=== PATIENT | female | born 1980 | race Caucasian/White ===

== ENCOUNTER 2022-02-15 16:42 | Emergency (ER) | payer OTHER, SELFPAY ==
[2022-02-15 16:55] VITALS: BP 127/88; PULSE 79; RESP 18; TEMP 36.6; O2SAT 100
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
== END 2022-02-15 17:26 | disposition home or self-care (01) ==
PROVIDERS: Emergency Provider Nurse Practitioner Family
DX: B37.3 Candidiasis of vulva and vagina (principal); F41.9 Anxiety disorder, unspecified
CPT/HCPCS: 81003; 87086; 87088; 87491; 87591; 87661; 99204; G0463

== ENCOUNTER 2025-01-10 08:28 | Outpatient (CLI) | payer OTHER, SELFPAY ==
--- OUTSIDE RECORDS SUMMARY | 2025-01-10 08:31 | XMS_ITS | Encounter Summary ---
Author Organization [facility] Care Team Providers Care Cutter Head Sharpener Name Role Phone Brenda Fuller MD Primary Care Provider [phone] Arnoldo Valiente DO Primary Care Provider + Samreen Martinez [facility] Primary Care Provi dax Encounter Details Date Type Department Care Team (Latest Contact Info) Description 05/11/2017 Orders Only [facility] ProviderGerardo MD [address] [place] [id number] Social History Tobacco Use Types Packs/Day Years Used Date Smoking Tobacco: Never Assessed Comments Unknown Sex and Gender Information Value Date Recorded Sex Assigned at Not on file Legal Sex Female 8:20 PM SYSTEM CONFIGURATION SPECIALIST Gender Identity Not on file Sexual Orientation Not on file documented as of this encounter Plan of Treatment Not on file documented as of this encounter Procedures Procedure Name Priority Date/Time Associated Diagnosis Comments CARDIOLOGY REPORT 05/15/2017 12: 00 AM SYSTEM CONFIGURATION SPECIALIST documented in this encounter Results * CARDIOLOGY REPORT (05/15/2017 12:00 AM SYSTEM CONFIGURATION SPECIALIST) Anatomical Region Laterality Modality Other Narrative 05/15/2017 12:00 AM SYSTEM CONFIGURATION SPECIALIST Ordered by an unspecified provider. Historical Provider [facility] AMELIA GANDARA Final Result documented in this encounter Visit Diagnoses Not on filedocumented in this encounter Care Teams Cutter Head Sharpener Relationship Specialty Start Date End Date Brenda Fuller MD PCP - General Family Medicine 12/19/18 12/18/21 Arnoldo Valiente DO PCP - General Family Medicine 12/19/21 10/08/23 Samreen Martinez DNP [id number] [place] [address] PCP - General Nurse Practitioner 10/09/23 documented as of this encounter
--- OUTSIDE RECORDS SUMMARY | 2025-01-10 08:31 | XMS_ITS | Clinical Summary ---
Author Organization [facility] Care Team Providers Care Arabic Professor Name Role Phone Unavailable Primary Care Provider Unavailabl e Social History Tobacco Use Types Packs/Day Years Used Date Smoking Tobacco: Never Assessed Comments Unknown Sex and Gender Information Value Date Recorded Sex Assigned at Not on file Legal Sex Female 7:52 AM BREWER HELPER Gender Identity Not on file Sexual Orientation Not on file Plan of Treatment Health Maintenance Due Date Last Done Comments Hepatitis C Virus (HCV) Screening 1981 Human Papillomavirus (HPV) Immunization (1 - 3-dose series) 1996 Hepatitis B Immunization (1 of 3 - 19+ 3-dose series) 2000 Pap Smear 2002 Cervical Cancer Screening (CCS) 2011 HPV/Cotest 2011 SARS-COV-2 Immunization ( season) 2024 10/18/2020 Influenza Immunization (#1) 2025 Respiratory Syncytial Virus (RSV) Immunization (Adult) (1 - 1-dose 75+ series) 2056 DTaP/Tdap/Td Immunization Discontinued 02/19/2014 TdaP Immunization Completed 02/19/2014 Meningococcal Immunization (ACWY) Aged Out No longer eligible based on patient's age to complete this topic Pneumococcal Immunization Combined Aged Out No longer eligible based on patient's age to complete this topic Rotavirus Immunization Aged Out No lo nger eligible based on patient's age to complete this topic
--- OUTSIDE RECORDS SUMMARY | 2025-01-10 08:31 | XMS_ITS | Clinical Summary ---
Author Organization [facility] Address [address] [place] [address] Care Team Providers Care Breaking Machine Operator Name Role Phone Brenda Colon MD Primary Care Provider [phone] Allergies No known active allergies Medications multi vitamin/minerals tablet Take 1 tablet by mouth daily. Active Family History Medical History Relation Comments No Known Problems Father No Known Problems Mother Relation Status Comments Father Mother Social History Tobacco Use Types Packs/Day Years Used Date Smoking Tobacco: Never Smokeless Tobacco: Never Alcohol Use Standard Drinks/Week Comments Yes 0 (1 standard drink = 0.6 oz pur e alcohol) Comments No Sex and Gender Information Value Date Recorded Sex Assigned at Not on file Legal Sex Female 7:24 PM CDT Gender Identity Not on file Sexual Orientation Not on file Last Filed Vital Signs Vital Sign [place] Time Taken Comments Blood Pressure 132/87 12/10/2020 12:52 PM CDT Pulse 97 12/10/2020 12:52 PM CDT Temperature 36.8 C (98.2 F) 12/10/2020 12:52 PM CDT Respiratory Rate 18 12/10/2020 12:52 PM CDT Oxygen Saturation 98% 12/10/2020 12:52 PM CDT Inhaled Oxygen Concentration - - Weight - - Height - - Body Mass Index - - Plan of Treatment Health Maintenance Due Date Last Done Comments Cervical Cancer Screening Pa p Smear (Age 30 to 64) Every 3 Years 1981 Annual Physical 1984 Hepatitis C 1999 DTaP, Tdap and Td Vaccines ( 1 - Tdap) 2000 Hepatitis B Vaccines (1 of 3 - 19+ 3-dose series) 2000 HPV Vaccines (1 - 3-dose SCD M series) 2008 Cervical Cancer Screening Pa p with HPV Testing (Age 30 to 64) Every 5 Years 2011 Cervical Cancer Screening with HPV 2011 Mammogram Screening 2021 COVID-19 Vaccine (2 - 2023-2 5 season) 2024 10/18/2020 Meningococcal B Vaccine Aged Out No l onger eligible based on patient's age to complete this topic Meningococcal Vaccine Aged Out No iman joyce eligible based on patient's age to complete this topic Pneumococcal Vaccine: Pediat rics (0 to 5 Years) and At-Risk Patients (6 to 49 Years) Aged Out No longer eligi ble based on patient's age to complete this topic RSV Immunizations Under 20 Months Aged Out No longer eligible based on patient's age to complete this topic Insurance [employer] Care Teams Breaking Machine Operator Relationship Specialty Start Date End Date Brenda Colon MD PCP - General 06/21/16
--- OUTSIDE RECORDS SUMMARY | 2025-01-10 08:31 | XMS_ITS | Clinical Summary ---
Author Organization [facility] Address [address] [place] [address] Care Team Providers Care Building Specialist Name Role Phone Samreen Martinez [facility] Primary Care Provi dax Allergies Active Allergy Reactions Criticality Noted Date Comments Shellfish Containing Products Itching Low 2021 Medications albuterol HFA (PROVENTIL HFA,VENTOLIN HFA,PROAIR HFA) 90 mcg/actuation inhaler Inhale 2 puffs every 6 (six) hours as needed for wheezing or shortness of breath 1 each 3 Active Additional Information Patient not taking.Reported on 07/27/2023 Active Problems Problem Noted Date Diagnosed Date Syncopal episodes 10/23/2022 Assessment & Plan (10/23/2022 4:58 PM CDT): Etiology undetermined Ct head with out contrast EEG Echocardiogram Cbc Chem 7 lft tsh and free t4 No driving 6 months 48 hr holter cxr Severe obesity (BMI 35.0-39.9) with comorbidity 10/23/2022 Assessment & Plan (10/23/2022 5:05 PM CDT): Healthy diet 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 Recent labs reviewed and still low but improving Assessment & Plan (12/20/2021 12:52 PM CDT): Start 5000 international units D3 daily. Recheck labs in 3 months. 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 Stable. Following with neurosurgery. Has some postconcussive symptoms still. Off work for another week. Obesity (BMI 30-39.9) 12/15/20212022 Intractable left heel pain 12/26/2018 1 Pure hypercholesterolemia 12/26/2018 Assessment & Plan (12/26/2018 4:38 PM CDT): Start low cholesterol diet Dizziness 12/20/2018 03/22/2022 Assessment & Plan (12/26/2018 4:38 PM CDT): Order ct head Order Physical therapy Try meclizine Assessment & Plan (12/20/2018 1:49 PM CDT): Possibly secondary to the increased menstrual bleeding she was having Will first check CBC and iron level Adult general medical exam 12/20/2018 1 Post-traumatic headache, not intractable 03/22/2022 Immunizations Immunization Administration Dates Next Due Influenza, Unspecified 03/22/2022(Deferr ed: Patient Refused),03/11/2021(Deferred: Patient Refused) Tdap 02/19/2014 Medical History Medical History Date Comments 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 empower testing 06/2021 Pure hypercholesterolemia 12/26/2018 Family History Medical History Relation Name Comments No Known Problems Brother Colon cancer Father Dementia Father Breast cancer Mother No Known Problems Sister No Known Problems Son Relation Name Status Comments Brother Alive Father Alive Mother Alive Sister Alive Son Alive Social History Tobacco Use Types Packs/Day Years Used Date Smoking Tobacco: Every Day Vaping Smokeless Tobacco: Never Tobacco Cessation:Ready to Q uit: Not Asked; Counseling Given: Not Answered Alcohol Use Standard Drinks/Week Comments Yes 0 (1 standard drink = 0.6 oz pur e alcohol) AUDIT-C Answer Date Recorded Q1: How often do you have a drink containing alc ohol? 2-3 times a week 10/23/2022 Q2: How many drinks containi ng alcohol do you have on a typical day when you are drinking? 1 or 2 10/23/2022 Frequency of Binge Drinking Not on file 10/09 PHQ-2 Answer Date Recorded PHQ-2 Total Score (If total score is 3 or more points, staff should administer the PHQ-9) 6 04/26/2022 Personal Safety Answer Date Recorded Have you ever been in or are you currently in a harmful physical or emotional relationship or is someone making you feel afraid or unsafe? Denies 10/29/2022 Comments No Sex and Gender Information Value Date Recorded Sex Assigned at Not on file Legal Sex Female 8:20 PM SPEECH WRITER Gender Identity Not on file Sexual Orientation Not on file Obstetrics History Para Term AB IAB SAB Ectopic Multiple Livin g Live Births 3 1 1 1 1 1 Date Outcome GA Total Labor Labor/2nd/3rd Weight Sex Type Anes PTL Albertina A1 A5 Name Clin SAB Term Last Filed Vital Signs Vital Sign [place] Time Taken Comments Blood Pressure 118/70 08/01/2024 9:01 AM SPEECH WRITER Pulse 74 10/29/2022 9:36 PM CDT Temperature 36.7 C (98 F) 10/29/2022 5:31 PM CDT Respiratory Rate 18 10/29/2022 9:36 PM CDT Oxygen Saturation 97% 10/29/2022 9:36 PM CDT Inhaled Oxygen Concentration - - Weight 99.8 kg (220 lb) 08/01/2024 9:01 AM SPEECH WRITER Height 162.6 cm (5' 4) 08/01/2024 9:01 AM SPEECH WRITER Body Mass Index 37.76 08/01/2024 9:01 AM SPEECH WRITER Plan of Treatment Health Maintenance Due Date Last Done Comments Cervical Cancer Screening 1981 Hepatitis C Screening 1981 Varicella Vaccines (1 of 2 - 13+ 2-dose series) 1994 Hepatitis B Screening 1999 Pneumococcal vaccine <65 (1 of 2 - PCV) 2000 HPV Vaccines (1 - 3-dose SCD M series) 2008 Depression Screening 04/26/2023 04/26/2022, 12/21/19 22 Covid-19 Vaccine (2 - 2023-2 5 season) 2024 10/18/2020 DTaP/Tdap/Td Vaccine (2 - Td or Tdap) 02/20/2024 02/19/2014 Breast Cancer Screening-Mammogram 11/06/2024 024, 09/25/2022 Regular Well Visit/Exam 18-64 08/01/2025, 07/27/2023, 06/22/2022, Additional history exists Influenza Vaccine Discontinued Procedures Procedure Name Priority Date/Time Associated Diagnosis Comments SCREENING MAMMOGRAM BILATERAL W REILLY Schedule Routine, Read Routine (OP Routine) 11/07/2023 1:41 PM CDT Encounter for screening mammogram for malignant neoplasm of breast from Last 3 Months or Most Recently Relevant to Health Maintenance Results * Screening Mammogram Bilateral W Reilly (11/07/2023 1:41 PM CDT) Anatomical Region Laterality Modality Breast Bilateral Mammography Impressions 11/07/2023 2:04 PM CDT BI-RADS ATLAS category (overall): 1 - Negative There is no mammographic evidence of malignancy. A 1 year screening mammogram is recommended. The patient has been or will be contacted. We recommend annual screening mammography for women at average risk of breast cancer beginning at age 40, based on guidelines of the [place] [employer] (ACR Practice Parameter for the Performance of Screening and Diagnostic Mammography) and [place] [employer]. For women with and elevated risk of breast cancer, please refer to the ACR Practice Parameter for specific screening recommendations. The patient will be entered into a reminder system with a target due date of 1 year for her next screening exam. Narrative 11/07/2023 2:04 PM CDT Screening Mammogram Bilateral W Reilly: 11/07/23 The study was acquired using full field digital technology and interpreted from soft copy. 2D digital mammographic views, as well as 3D digital tomosynthesis were performed in the CC and MLO projections. CLINICAL: Encounter for screening mammogram for malignant neoplasm of breast. No relevant medical history has been documented for this patient. History of breast cancer in Mother. COMPARISONS: 09/25/2022 SCREENING MAMMOGRAM BILATERAL W REILLY BREAST TISSUE: The breasts have scattered areas of fibroglandular density. FINDINGS: There is no new suspicious finding in either breast on mammogram. Se Mayes MD IMG MAMMO PROCEDURES Fin al Result from Last 3 Months or Most Recently Relevant to Health Maintenance Insurance [facility] CHO[facility] PLUS [facility] H[facility]/PPO Address: [facility] [address] [place] [address] [facility] PPO WORKERS COMPENSATION [facility] Care Teams Building Specialist Relationship Specialty Start Date End Date Samreen Martinez, [facility] [address] [place] [address] PCP - General Nurse Practitioner 10/09/23
--- OUTSIDE RECORDS SUMMARY | 2025-01-10 08:31 | XMS_ITS | Patient Health Record ---
Author Organization [facility] Address [address] [place], [place] [id number] Care Team Providers Care Tennis Player Name Role Phone TATIANA SHARIF Unavailable [phone] Brenda Lund Unavailable Unavailable Reason For Referral No Information Medications Medication SIG (Take, Route, Frequency, Duration) Notes Start Date End Date Status Medrol Dosepak ORAL Medrol DosepakOr iginal MedicationMedrol Dosepak *Reorder from Tripnary for eRx and Interaction Alerts* 04/15/2020 Active Plan Of Treatment No Information Insurance Providers Payer Name Payer Address Payer Phone Subscriber Number Group Number Insured Name Patient Relationship to Insured Coverage Start Date Coverage End Date [employer] [address] RACHID LAINEZ, RACHEL [address] [phone] [id number] TATIANA SAEED Natural Child - Insured has Financial Responsibility
--- OUTSIDE RECORDS SUMMARY | 2025-01-10 08:31 | XMS_ITS | Referral Summary ---
Author Organization [facility] Address [address] [place] [address] Care Team Providers Care Manager Database Administration Name Role Phone Samreen Martinez [facility] Primary Care Provi dax Allergies Active Allergy [...] (12/20/2018 1:49 PM CDT): Better F/u with professor of biology Anxiety 05/11/2017 Attention deficit hyperactiv ity disorder [...] ed: Patient Refused),03/11/2021(Deferred: Patient Refused) Tdap 02/19/2014 Social History Tobacco Use Types Packs/Day Years [...] on file Legal Sex Female 8:20 PM MINISTER OF RELIGION Gender Identity Not on file Sexual Orientation Not on file Last Filed Vital Signs Vital Sign [place] Time Taken Comments Blood Pressure 118/70 08/01/2024 9:01 AM MINISTER OF RELIGION Pulse 74 10/29/2022 9:36 PM CDT Temperature 36.7 C (98 F) 10/29/2022 5:31 PM CDT Respiratory Rate 18 10/29/2022 9:36 PM CDT Oxygen Saturation 97% 10/29/2022 9:36 PM CDT Inhaled Oxygen Concentration - - Weight 99.8 kg (220 lb) 08/01/2024 9:01 AM MINISTER OF RELIGION Height 162.6 cm (5' 4) 08/01/2024 9:01 AM MINISTER OF RELIGION Body Mass Index 37.76 08/01/2024 9:01 AM MINISTER OF RELIGION Plan of Treatment Not on file Procedures Procedure Name Priority Date/Time Associated Diagnosis [...] age 40, based on guidelines of the [place] [employer] (ACR Practice Parameter for the Performance of Screening and Diagnostic Mammography) and [place] [employer]. For women [...] Most Recently Relevant to Health Maintenance Insurance [facility] CHOICE PLUS [facility] PPO WORKERS COMPENSATION [facility] Care Teams Manager Database Administration Relationship Specialty Start Date End Date Samreen Martinez DNP [address] [place] [address] PCP - General Nurse Practitioner 10/09/23
--- OUTSIDE RECORDS SUMMARY | 2025-01-10 08:31 | XMS_ITS | Clinical Summary ---
Author Organization [facility] Address [address] [place] [address] Care Team Providers Care Butadiene Converter Helper Name Role Phone Moses Doan MD Primary Care Provider [phone] Source Comments [facility] Affiliates and Associated Physician Practices is amultiple site organization consisting of ambulatory clinics and hospital sitesin [place], [place], [place] and [place]. This disclosure is being madepursuant to the Care Everywhere program and may not contain all information available regarding this patient. Last updated 18.[facility] scrible Social History Tobacco Use Types Packs/Day Years Used Date Smoking Tobacco: Never Assessed Comments Unknown Sex and Gender Information Value Date Recorded Sex Assigned at Not on file Legal Sex Female 7:27 AM PHOTOGRAVURE PRESS OPERATOR Gender Identity Not on file Sexual Orientation Not on file Plan of Treatment Health Maintenance Due Date Last Done Comments LIPID TESTING 1981 MAMMOGRAM 1981 HIV SCREENING 1996 HEPATITIS C SCREENING 04/02/1999 DTAP/TDAP/TD VACCINES (1 - Tdap) 2000 HEPATITIS B VACCINE (1 of 3 - 19+ 3-dose series) 2000 HPV VACCINE (1 - 3-dose SCDM series) 2008 COVID-19 VACCINE ( - 2023-2 5 season) 2024 DEPRESSION SCREENING 06/11/2024 INFLUENZA VACCINE (#1) 2025 ZOSTER VACCINE (1 of 2) 2031 HIB VACCINE Aged Out No longer eligi ble based on patient's age to complete this topic MENINGOCOCCAL (Group B) VACC INE SHARED DECISION-MAKING Aged Out No longer eligibl e based on patient's age to complete this topic MENINGOCOCCAL GROUPS A/C/Y/W VACCINE Aged Out No longer eligible b ased on patient's age to complete this topic PNEUMOCOCCAL VACCINE Aged Out No long er eligible based on patient's age to complete this topic Insurance [facility] Care Teams Butadiene Converter Helper Relationship Specialty Start Date End Date Moses Doan MD [address] [place] [address] [address] [place] [address] PCP - General Internal Medicine 10/18/18
[2025-01-10 08:56] LABS: Hematocrit 42.2 % (37.0-47.0); Hemoglobin 14.3 g/dL (12.0-15.0); Immature Granulocyte Percent A 0.4 % (0-0.5); Lymphocytes Absolute Auto 1.19 K/mm3 (0.9-3.2); Mean Corpuscular HGB Conc 33.9 g/dl (32-36); Mean Corpuscular Hemoglobin 32.4 pg (26-34); Mean Corpuscular Volume 95.5 fl (80-100); Nucleated Red Blood Cells Absolute Auto 0.000 K/mm3 (0.0-0.012); Nucleated Red Blood Cells Perc 0.0 % (0.0-0.2); Platelet Count Result 212 k/mm3 (150-375); Red Blood Count 4.42 M/mm3 (4.2-5.4); White Blood Count 5.4 K/mm3 (4.5-10.0)
[2025-01-10 09:13] LABS: Add Urine Microscopic? NO; Appearance Urine Clear (Clear); Glucose Urine UA Negative (Negative); Leukocyte Esterase Ur Negative LEU/UL (Negative); Nitrate Urine Negative (Negative); Specific Grav Ur 1.016 (1.001-1.035)
[2025-01-10 09:35] LABS: Hemoglobin A1C 5.1 % (<5.7)
[2025-01-10 09:40] LABS: Alanine Aminotransferase 20 U/L (6-35); Albumin Level 4.2 g/dL (3.5-5.1); Alkaline Phosphatase 56 U/L (38-126); Anion Gap 7 mmol/L (4-12); Aspartate Amino Transferase 27 U/L (14-36); Bilirubin,Total 0.5 mg/dL (0.2-1.3); Blood Urea Nitrogen 11 mg/dL (7-17); Calcium 9.2 mg/dL (8.4-10.2); Carbon Dioxide 27 mmol/L (22-30); Chloride 106 mmol/L (98-107); Cholesterol 168 mg/dL (0-200); Estimated Glomerular Filt Rate > 60; Glucose 92 mg/dL (65-110); HDL Direct 69 mg/dL; Potassium 4.1 mmol/L (3.4-5.0); Sodium 140 mmol/L (137-145); Total Protein 7.3 g/dL (6.3-8.2); Triglycerides 76 mg/dL (<150)
[2025-01-10 10:10] LABS: Thyroid Stimulating Hormone Reflex 0.724 uIU/mL (0.465-4.68)
== END 2025-01-10 08:29 | disposition home or self-care (01) ==
LOC: ANHLAB 08:29
PROVIDERS: PCP Nurse Practitioner Family; Visit Provider Nurse Practitioner Family
DX: Z13.6 Encounter for screening for cardiovascular disorders (principal); Z13.29 Encounter for screening for other suspected endocrine disorder; Z13.1 Encounter for screening for diabetes mellitus; Z68.37 Body mass index [BMI] 37.0-37.9, adult; Z00.00 Encounter for general adult medical examination without abnormal findings; Z13.0 Encounter for screening for diseases of the blood and blood-forming organs and certain disorders involving the immune mechanism
CPT/HCPCS: 36415; 80053; 80061; 81003; 83036; 84443; 85025